=== PATIENT | male | born 1970 ===

== ENCOUNTER 2016-09-08 12:03 | Emergency (ER) | payer OTHER ==
[2016-09-08 13:57] VITALS: BP 130/86
--- NOTE | 2016-09-08 14:08 | UC ---
Throat Pain/Nasal Brandon HPI - HPI Summary HPI Summary: pt presents with c/o of oral thrush. Pt began symbicort 3 months ago and has been rinsing his mouth after using medication but is concerned with development of thick white coating on tongue. - History of Current Complaint Stated Complaint: THRUSH Time Seen by Provider: 09/08/16 13:56 Hx Obtained From: Patient Onset/Duration: Gradual Onset, Lasting Days Severity: Mild Cough: None Associated Signs & Symptoms: Positive: Other - thick white coating on tongue, that can be scraped off and returns Related History: Other (Noted In Comments) - asthma - Allergies/Home Medications Allergies/Adverse Reactions: Allergies Allergy/AdvReac Type Severity Reaction Status Date / Time Penicillins [PCN] Allergy Anaphylatic Verified 09/08/16 13:51 Shock Home Medications: Home Medications Albuterol HFA INHALER* [Ventolin HFA Inhaler*] 1 - 2 puff INH Q6H PRN 09/08/16 [ History Confirmed 09/08/16] Budesonide/Formote 80/4.5(NF) [Symbicort 80/4.5 (NF)] 1 puff INH BID 09/08/16 [ History Confirmed 09/08/16] PMH/Surg Hx/FS Hx/Imm Hx Previously Healthy: Yes Respiratory History Of: Reports: Asthma - Surgical History Surgical History: Yes Surgery Procedure, Year, and Place: ureter surgery, back surgery x2 - Family History Known Family History: Positive: Cardiac Disease - Social History Occupation: Employed Full-time Lives: With Family Alcohol Use: None Substance Use Type: None Smoking Status (MU): Never Smoked Tobacco Review of Systems Constitutional: Negative Skin: Negative Eyes: Negative ENT: Other - "white tongue" Respiratory: Negative Cardiovascular: Negative Gastrointestinal: Negative Genitourinary: Negative Motor: Negative Neurovascular: Negative Musculoskeletal: Negative Neurological: Negative Psychological: Negative All Other Systems Reviewed And Are Negative: Yes Physical Exam Triage Information Reviewed: Yes Appearance: Well-Appearing Vital Signs: Initial Vital Signs Temp 98.2 F 09/08/16 13:52 Pulse 53 09/08/16 13:52 Resp 16 09/08/16 13:52 BP 130/86 09/08/16 13:52 Pulse Ox 100 09/08/16 13:52 Vital Signs Reviewed: Yes Eye Exam: Normal ENT Exam: Other - thick white coating on tongue that can be scraped off Neck exam: Normal Respiratory Exam: Other Respiratory: Positive: No respiratory distress Musculoskeletal Exam: Normal Neurological Exam: Normal Psychological Exam: Normal Skin Exam: Normal Throat Pain/Nasal Course/Dx - Course Course Of Treatment: I spoke to the pt about brsuhing his teeth/tongue after each use of his steroids. He verbalized understanding and agreed to plan of care. - Differential Dx/Diagnosis Differential Diagnosis/HQI/PQRI: Other - oral thrush Provider Diagnoses: oral thrush Discharge - Discharge Plan Condition: Stable Disposition: HOME Prescriptions: Fluconazole 100 MG TAB* [Diflucan 100 MG TAB*] 100 mg PO DAILY #1 tab Nystatin SUSPENSION* 5 ml PO QID #140 ml Patient Education Materials: Oral Candidiasis (ED) Referrals: Sanna Bethea [Primary Care Provider] - If Needed (Please follow up with your PCP or return to clinic as needed. )
== END 2016-09-08 14:21 | disposition home or self-care (01) ==
LOC: UCCORT 12:03
DX: B37.9 Candidiasis, unspecified (principal); J45.909 Unspecified asthma, uncomplicated; Z88.0 Allergy status to penicillin
CPT/HCPCS: 99212; G0463

== ENCOUNTER 2017-06-11 11:36 | Emergency (ER) | payer OTHER ==
[2017-06-11 14:09] VITALS: BP 124/82
--- NOTE | 2017-06-11 14:29 | UC ---
Respiratory Complaint HPI - HPI Summary HPI Summary: Cough and congestion for about 1.5 mo. THere is question of asthma. He does not smoke. He has been well in general and has been able to excersize. The cough will not go away. - History of Current Complaint Chief Complaint: UCRespiratory Stated Complaint: CONGESTION Time Seen by Provider: 06/11/17 14:05 Hx Obtained From: Patient Onset/Duration: Gradual Onset, Lasting Weeks Timing: Constant Severity Initially: Moderate Severity Currently: Moderate Pain Intensity: 0 Character: Cough: Nonproductive Aggravating Factors: Deep Breaths, Recumbent Position Alleviating Factors: Upright Position, Spontaneous Resolution Associated Signs And Symptoms: Positive: URI, Nasal Congestion - Allergies/Home Medications Allergies/Adverse Reactions: Allergies Allergy/AdvReac Type Severity Reaction Status Date / Time MS Penicillins [PCN] Allergy Anaphylatic Verified 06/11/17 14:00 Shock Home Medications: Home Medications Ibuprofen TAB* [Advil TAB*] 800 mg PO Q6H PRN 06/11/17 [History Confirmed ] PMH/Surg Hx/FS Hx/Imm Hx Previously Healthy: Yes - Surgical History Surgical History: Yes Surgery Procedure, Year, and Place: ureter surgery, back surgery x2 - Family History Known Family History: Positive: Cardiac Disease - Social History Occupation: Employed Full-time Alcohol Use: None Substance Use Type: None Smoking Status (MU): Never Smoked Tobacco Review of Systems ENT: Sinus Congestion Respiratory: Cough All Other Systems Reviewed And Are Negative: Yes Physical Exam Triage Information Reviewed: Yes Appearance: Well-Appearing, No Pain Distress, Well-Nourished Vital Signs: Initial Vital Signs Temp 98.9 F 06/11/17 14:02 Pulse 57 06/11/17 14:02 Resp 16 06/11/17 14:02 BP 124/82 06/11/17 14:02 Pulse Ox 97 06/11/17 14:02 Vital Signs Reviewed: Yes Eyes: Positive: Conjunctiva Clear ENT: Positive: Normal ENT inspection, Pharynx normal, Nasal congestion, TMs normal, Uvula midline. Negative: Pharyngeal erythema, Nasal drainage, TM bulging, TM dull, TM red, Tonsillar swelling, Tonsillar exudate, Trismus, Muffled voice, Sinus tenderness Neck: Positive: Supple, Nontender, No Lymphadenopathy Respiratory: Positive: Normal breath sounds, No respiratory distress, No accessory muscle use, Rhonchi, Wheezing. Negative: Respiratory distress, Decreased breath sounds, Accessory muscle use, Crackles, Stridor Cardiovascular: Positive: No Murmur, Pulses Normal, Brisk Capillary Refill Abdomen Description: Positive: No Organomegaly, Soft. Negative: Distended, Guarding Musculoskeletal: Positive: ROM Intact, No Edema Neurological: Positive: Alert, Muscle Tone Normal. Negative: Fatigued Psychological: Positive: Age Appropriate Behavior Skin: Negative: rashes UC Diagnostic Evaluation - Laboratory O2 Sat by Pulse Oximetry: 97 Respiratory Course/Dx - Course Course Of Treatment: Wheezing and cough. No obvious fever or clinical signs of pneumonia. We will start aggressive management. He will f/u [facility] pcp or us if not improving. - Differential Dx/Diagnosis Provider Diagnoses: acute bronchitis. Discharge - Discharge Plan Condition: Good Disposition: HOME Prescriptions: Albuterol Sulfate [Proventil Hfa] 6.7 gm IH QID PRN #1 [email or web address] PRN Reason: Cough Azithromyxin ESTER (NF) [Z-Ester (Zithromax) 250 mg tabs #6] 2 tab PO .TODAY, THEN 1 DAILY #6 tab Inhaler, Assist Devices [Aerochamber Mini] 1 each MC QID #1 spacer predniSONE TAB* [Deltasone TAB*] 20 mg PO DAILY #20 tab Patient Education Materials: Acute Bronchitis (ED) Referrals: Aleida Alexander MD [Primary Care Provider] - Additional Instructions: REturn if not better in 5 days.
== END 2017-06-11 14:33 | disposition home or self-care (01) ==
LOC: UCCORT 11:36
DX: J20.9 Acute bronchitis, unspecified (principal); Z88.0 Allergy status to penicillin
CPT/HCPCS: 99212; G0463